=== PATIENT | male | born 1965 | race Caucasian/White ===

== ENCOUNTER 2022-03-23 11:11 | Inpatient (IN) | payer OTHER ==
[2022-03-23 11:29] VITALS: BMI 43.7
[2022-03-23 14:14] LABS: BASO % 0.7 % (0-2.0); HEMATOCRIT 41.3 % (35.4-49); HEMOGLOBIN 13.1 GM/dL (11.7-16.9); LYMPH % 12.7 % (8-40); MCHC 31.7 g/dl (32.0-35.9); MEAN CELL VOLUME 88.2 fl (80-96); MEAN PLT VOLUME 9.8 fl (7.5-11.1); MONO % 8.2 % (3.8-10.2); NEUT % 77.4 % (42.8-82.8); PLATELET COUNT 149 10^3/uL (134-434); RBC 4.68 M/mm3 (4.00-5.60); RDW 15.8 % (11.9-15.9); WHITE BLOOD COUNT 7.2 K/mm3 (4.0-10.0)
[2022-03-23 15:05] LABS: CHLORIDE 104 mmol/L (98-107); SODIUM 142 mmol/L (136-145)
[2022-03-23 15:08] LABS: ALBUMIN 3.5 g/dl (3.4-5.0); ANION GAP 13 MMOL/L (8-16); BLOOD UREA NITROGEN 26.8 mg/dL (7-18); CO2 25 mmol/L (21-32); GLUCOSE,RANDOM 212 mg/dL (74-106); MAGNESIUM 2.4 mg/dL (1.8-2.4)
[2022-03-23 15:11] LABS: CREATININE 1.3 mg/dL (0.55-1.3); PHOSPHOROUS 3.6 mg/dL (2.5-4.9); SGOT/AST 20 U/L (15-37); SGPT/ALT 35 U/L (13-61)
[2022-03-23 15:12] LABS: CALCIUM 9.1 mg/dL (8.5-10.1)
[2022-03-23 15:13] LABS: BILIRUBIN,TOTAL 1.8 mg/dL (0.2-1); TOT PROT 7.4 g/dl (6.4-8.2)
[2022-03-23 15:14] LABS: ALK PHOS 78 U/L (45-117)
[2022-03-23 15:16] LABS: N-TERMINAL BNP 1400.1 pg/ml (5-125)
[2022-03-23] MEDS ORDERED: ATORVASTATIN CA 80 MG TABLET (FP) PO ONE (16:03)
[2022-03-23] MEDS ORDERED: ASPIRIN 81 MG CHEWABLE TABLETS PO ONE (16:03)
[2022-03-23] MEDS ORDERED: CLOPIDOGREL BISULFATE 300 MG TABLET PO ONE (16:04)
[2022-03-23] MEDS ORDERED: HEPARIN NA (PORCINE) 5,000 UNITS/ML 1ML VIAL IVPUSH ONE (16:04)
[2022-03-23] MEDS ORDERED: HEPARIN NA (PORCINE) 5,000 UNITS/ML 1ML VIAL IVPUSH PRN ×2 (16:04)
[2022-03-23] MEDS ORDERED: ALBUTEROL SO4 2.5/IPRATROPIUM 0.5 INH SOL 3 ML VIAL.NEB. NEB ONE (16:09)
[2022-03-23] MEDS ORDERED: ATORVASTATIN CA 80 MG TABLET (FP) ONE (16:09)
[2022-03-23] MEDS ORDERED: CLOPIDOGREL BISULFATE 300 MG TABLET ONE (16:09)
[2022-03-23] MEDS ORDERED: ASPIRIN 81 MG CHEWABLE TABLETS ONE (16:10)
[2022-03-23] MEDS ORDERED: HEPARIN SOD,PORK IN 0.45% NACL 25,000 UNITS/500 ML INFUS.BAG IVPB SCH (16:15)
[2022-03-23] MEDS: ALBUTEROL SO4 2.5/IPRATROPIUM 0.5 INH SOL 3 ML VIAL.NEB. NEB SCH ×4 (16:22→17:53)
[2022-03-23 18:23] LABS: INR 1.28 (0.83-1.09); PROTHROMBIN TIME (PATIENT) 14.7 SEC (9.7-13.0)
[2022-03-23 18:26] LABS: ACTIVATED PTT 33.6 SECONDS (25.2-36.5)
[2022-03-23] MEDS ORDERED: HEPARIN INFUSION - 25,000 UNITS/500 ML INFUS.BAG IVPB ONE (18:40)
[2022-03-23] MEDS ORDERED: HEPARIN NA (PORCINE) 5,000 UNITS/ML 1ML VIAL ONE (18:45)
[2022-03-23] MEDS ORDERED: FUROSEMIDE 40 MG/4 ML INJECTABLE VIAL ONE (19:14)
[2022-03-23] MEDS: FUROSEMIDE 40 MG/4 ML INJECTABLE VIAL IVPUSH SCH (19:19)
[2022-03-23] MEDS ORDERED: ATORVASTATIN CA 80 MG TABLET (FP) PO SCH (22:00)
[2022-03-23] MEDS ORDERED: INSULIN (LEVEMIR) 100 UNITS/ML UNITS SQ SCH (22:00)
[2022-03-23] MEDS ORDERED: CARVEDILOL 25 MG TABLET (FP) ONE (22:40)
[2022-03-23] MEDS: CARVEDILOL 25 MG TABLET (FP) PO SCH (22:44)
[2022-03-23] MEDS: INSULIN SLIDING SCALE (NOVOLOG) 1 VIAL SQ SCH (22:48)
[2022-03-24 01:36] VITALS: PULSE 60
[2022-03-24] MEDS ORDERED: FUROSEMIDE 40 MG/4 ML INJECTABLE VIAL ONE ×2 (06:16→13:47)
[2022-03-24] MEDS: FUROSEMIDE 40 MG/4 ML INJECTABLE VIAL IVPUSH SCH ×2 (06:23→13:47)
[2022-03-24 08:02] LABS: BASO % 0.7 % (0-2.0); EOS % 1.9 % (0-4.5); HEMATOCRIT 41.9 % (35.4-49); HEMOGLOBIN 13.7 GM/dL (11.7-16.9); LYMPH % 17.8 % (8-40); MCH 28.8 pg (25.7-33.7); MCHC 32.6 g/dl (32.0-35.9); MEAN CELL VOLUME 88.2 fl (80-96); MEAN PLT VOLUME 9.9 fl (7.5-11.1); MONO % 10.8 % (3.8-10.2); NEUT % 68.8 % (42.8-82.8); PLATELET COUNT 152 10^3/uL (134-434); RBC 4.75 M/mm3 (4.00-5.60); RDW 16.2 % (11.9-15.9); WHITE BLOOD COUNT 5.5 K/mm3 (4.0-10.0)
[2022-03-24 08:10] LABS: CHLORIDE 104 mmol/L (98-107); SODIUM 140 mmol/L (136-145)
[2022-03-24 08:12] LABS: CALCIUM 9.5 mg/dL (8.5-10.1)
[2022-03-24 08:13] LABS: ALBUMIN 3.5 g/dl (3.4-5.0); ANION GAP 11 MMOL/L (8-16); BLOOD UREA NITROGEN 30.7 mg/dL (7-18); CO2 26 mmol/L (21-32); MAGNESIUM 2.3 mg/dL (1.8-2.4)
[2022-03-24 08:14] LABS: GLUCOSE,RANDOM 223 mg/dL (74-106)
[2022-03-24 08:16] LABS: CHOLESTEROL 162 mg/dL (50-200); CREATININE 1.4 mg/dL (0.55-1.3); SGOT/AST 15 U/L (15-37); SGPT/ALT 29 U/L (13-61)
[2022-03-24 08:17] LABS: BILIRUBIN,TOTAL 2.2 mg/dL (0.2-1); LDL CHOLESTEROL (ONLY SJRH) 101 mg/dL (5-100); TRIGLYCERIDES 171 mg/dL (0-150)
[2022-03-24 08:18] LABS: ALK PHOS 79 U/L (45-117); HDL CHOLESTEROL 47 mg/dL (40-60); TOT PROT 7.7 g/dl (6.4-8.2)
[2022-03-24] MEDS ORDERED: PANTOPRAZOLE 40 MG TABLET PO SCH (10:00)
[2022-03-24] MEDS ORDERED: ISOSORBIDE MONONITRATE 30 MG TAB.SR.24H (FP) PO SCH (10:00)
[2022-03-24] MEDS ORDERED: CARVEDILOL 25 MG TABLET (FP) ONE (10:01)
[2022-03-24] MEDS ORDERED: ISOSORBIDE MONONITRATE 30 MG TAB.SR.24H (FP) PO ONE (10:01)
[2022-03-24] MEDS ORDERED: PANTOPRAZOLE 40 MG TABLET PO ONE (10:01)
[2022-03-24] MEDS: INSULIN SLIDING SCALE (NOVOLOG) 1 VIAL SQ SCH ×2 (10:07→13:46)
[2022-03-24] MEDS: CARVEDILOL 25 MG TABLET (FP) PO SCH (10:08)
[2022-03-24] MEDS ORDERED: CLOPIDOGREL BISULFATE 75 MG TABLET (FP) PO SCH (10:30)
[2022-03-24] MEDS ORDERED: HEPARIN NA (PORCINE) 5,000 UNITS/ML 1ML VIAL ONE (13:42)
[2022-03-24] MEDS ORDERED: CLOPIDOGREL BISULFATE 75 MG TABLET (FP) ONE (13:42)
[2022-03-24 14:54] VITALS: BP 150/73; RESP 18; TEMP 98
== END 2022-03-24 18:31 | disposition short-term general hospital (02) | DRG 190 ==
LOC: JER 11:11 → JERBED 16:19
PROVIDERS: ADMIT Internal Medicine; ATTEND Internal Medicine
DX: I21.4 Non-ST elevation (NSTEMI) myocardial infarction (principal); I25.10 Atherosclerotic heart disease of native coronary artery without angina pectoris; I10 Essential (primary) hypertension; E11.9 Type 2 diabetes mellitus without complications; E78.00 Pure hypercholesterolemia, unspecified; I48.91 Unspecified atrial fibrillation; G47.33 Obstructive sleep apnea (adult) (pediatric); Z95.1 Presence of aortocoronary bypass graft; Z95.0 Presence of cardiac pacemaker
CPT/HCPCS: 0241U-QW; 36415; 71046-TC-FY; 80053; 80061; 82550; 82962; 83036; 83735; 83880; 84100; 84443; 84484; 85025; 85610; 85730; 93005; 93010; 94660; 99285-25; J1644

== ENCOUNTER 2023-08-31 12:38 | Inpatient (IN) | payer OTHER ==
[2023-08-31 12:44] VITALS: BMI 43.6
[2023-08-31 14:49] LABS: BASO % 0.4 % (0-2.0); EOS % 1.2 % (0-4.5); HEMATOCRIT 41.7 % (35.4-49); HEMOGLOBIN 13.6 GM/dL (11.7-16.9); LYMPH % 13.3 % (8-40); MCH 27.7 pg (25.7-33.7); MCHC 32.5 g/dl (32.0-35.9); MEAN CELL VOLUME 85.1 fl (80-96); NEUT % 77.1 % (42.8-82.8); PLATELET COUNT 197 10^3/uL (134-434); WHITE BLOOD COUNT 7.8 K/mm3 (4.0-10.0)
[2023-08-31] MEDS ORDERED: ceFAZolin SODIUM 1 GM VIAL ONE (14:55)
[2023-08-31 14:58] LABS: INR 1.28 (0.83-1.09); PROTHROMBIN TIME (PATIENT) 14.4 SEC (9.7-13.0)
[2023-08-31 15:01] LABS: ACTIVATED PTT 37.2 SECONDS (25.2-36.5)
[2023-08-31 15:07] LABS: POTASSIUM 4.1 mmol/L (3.5-5.1)
[2023-08-31 15:09] LABS: CALCIUM 8.9 mg/dL (8.5-10.1)
[2023-08-31 15:10] LABS: ALBUMIN 3.2 g/dl (3.4-5.0); BLOOD UREA NITROGEN 40.5 mg/dL (7-18)
[2023-08-31] MEDS: CEFAZOLIN 1 GM in DEXTROSE 5%-WATER - 50 ML IVPB ONE (15:12)
[2023-08-31 15:14] LABS: BILIRUBIN,TOTAL 1.1 mg/dL (0.2-1); TOT PROT 7.1 g/dl (6.4-8.2)
[2023-08-31 15:15] LABS: CREATININE 1.6 mg/dL (0.55-1.3)
[2023-08-31] MEDS: VANCOMYCIN PREMIX 1.75 GM 1,750 MG/350 ML PIGGYBACK IVPB ONE (16:09)
[2023-08-31] MEDS ORDERED: CEFAZOLIN 1 GM in DEXTROSE 5%-WATER - 50 ML IVPB SCH (18:00)
[2023-08-31] MEDS: APIXABAN 5 MG TABLET PO SCH (21:30)
[2023-08-31] MEDS: CARVEDILOL 25 MG TABLET (FP) PO SCH (21:31)
[2023-08-31] MEDS: ATORVASTATIN CA 80 MG TABLET (FP) PO SCH (21:31)
[2023-08-31] MEDS: INSULIN (LEVEMIR) 100 UNITS/ML UNITS SQ SCH (21:32)
[2023-08-31] MEDS: INSULIN ASPART SLIDING SCALE (NOVOLOG) 1 VIAL SQ SCH (21:33)
[2023-08-31] MEDS ORDERED: ISOSORBIDE MONONITRATE 30 MG TAB.SR.24H (FP) PO SCH (22:00)
[2023-09-01] MEDS: CEFEPIME 1 GM in SODIUM CHLORIDE 100 ML IVPB SCH (04:10)
[2023-09-01] MEDS: VANCOMYCIN/WATER 2 GRAMS 2,000 MG/400 ML PIGGYBACK IVPB SCH ×2 (06:37→11:29)
[2023-09-01] MEDS: INSULIN (NOVOLOG) ASPART 100 UNITS/ML 10ML VIAL SQ SCH (06:55)
[2023-09-01 08:20] LABS: BASO % 0.4 % (0-2.0); EOS % 1.9 % (0-4.5); HEMATOCRIT 41.2 % (35.4-49); HEMOGLOBIN 13.3 GM/dL (11.7-16.9); LYMPH % 17.4 % (8-40); MCH 27.7 pg (25.7-33.7); MCHC 32.1 g/dl (32.0-35.9); MEAN CELL VOLUME 86.1 fl (80-96); MEAN PLT VOLUME 9.4 fl (7.5-11.1); NEUT % 70.3 % (42.8-82.8); PLATELET COUNT 200 10^3/uL (134-434); RBC 4.79 M/mm3 (4.00-5.60); RDW 16.8 % (11.9-15.9); WHITE BLOOD COUNT 6.9 K/mm3 (4.0-10.0)
[2023-09-01 08:27] LABS: POTASSIUM 4.3 mmol/L (3.5-5.1)
[2023-09-01 08:34] LABS: ALBUMIN 3.1 g/dl (3.4-5.0); BLOOD UREA NITROGEN 38.6 mg/dL (7-18); CALCIUM 8.8 mg/dL (8.5-10.1); MAGNESIUM 2.3 mg/dL (1.8-2.4)
[2023-09-01 08:37] LABS: PHOSPHOROUS 4.1 mg/dL (2.5-4.9)
[2023-09-01 08:38] LABS: CREATININE 1.4 mg/dL (0.55-1.3)
[2023-09-01 08:39] LABS: BILIRUBIN,TOTAL 1.1 mg/dL (0.2-1); TOT PROT 7.1 g/dl (6.4-8.2)
[2023-09-01] MEDS: ISOSORBIDE MONONITRATE 30 MG TAB.SR.24H (FP) PO SCH ×2 (09:50→17:36)
[2023-09-01] MEDS: SODIUM CHLORIDE 1,000 ML IV SCH (10:18)
[2023-09-01] MEDS: INSULIN (LEVEMIR) 100 UNITS/ML UNITS SQ SCH (10:19)
[2023-09-01] MEDS: CEFEPIME HCL 1 GM VIAL (RESTRICTED TO ID) IVPB SCH (11:29)
[2023-09-01] MEDS: CEFTRIAXONE 2 GM in DEXTROSE 5%-WATER 100 ML IVPB SCH (13:55)
[2023-09-01] MEDS: FLUTICASONE PROP 0.05% 16 GM NASAL SPRAY NS SCH (19:09)
[2023-09-01] MEDS: SODIUM CHLORIDE NASAL SPRAY 44 ML BOTTLE NS PRN (19:09)
[2023-09-02 09:56] LABS: BASO % 0.4 % (0-2.0); EOS % 2.2 % (0-4.5); HEMATOCRIT 40.1 % (35.4-49); HEMOGLOBIN 12.8 GM/dL (11.7-16.9); LYMPH % 22.5 % (8-40); MCH 27.5 pg (25.7-33.7); MCHC 31.8 g/dl (32.0-35.9); MEAN CELL VOLUME 86.4 fl (80-96); MEAN PLT VOLUME 9.4 fl (7.5-11.1); NEUT % 64.9 % (42.8-82.8); PLATELET COUNT 209 10^3/uL (134-434); RBC 4.64 M/mm3 (4.00-5.60); WHITE BLOOD COUNT 6.2 K/mm3 (4.0-10.0)
[2023-09-02 10:16] LABS: POTASSIUM 4.8 mmol/L (3.5-5.1)
[2023-09-02 10:33] LABS: ALBUMIN 3.1 g/dl (3.4-5.0); BLOOD UREA NITROGEN 31.3 mg/dL (7-18); CALCIUM 8.8 mg/dL (8.5-10.1); MAGNESIUM 2.3 mg/dL (1.8-2.4)
[2023-09-02 10:36] LABS: CREATININE 1.1 mg/dL (0.55-1.3)
[2023-09-02 10:37] LABS: BILIRUBIN,TOTAL 1.3 mg/dL (0.2-1)
[2023-09-02 10:38] LABS: TOT PROT 7.1 g/dl (6.4-8.2)
[2023-09-02] MEDS: TORSEMIDE 20 MG TABLET (FP) PO SCH (12:16)
[2023-09-02] MEDS: CALCIUM ACETATE/AL SULFATE TOP 1.9 GM/PACKET PACKET TP SCH (17:13)
[2023-09-03 09:18] LABS: BASO % 0.6 % (0-2.0); EOS % 2.3 % (0-4.5); HEMATOCRIT 39.1 % (35.4-49); HEMOGLOBIN 12.5 GM/dL (11.7-16.9); LYMPH % 22.8 % (8-40); MCH 27.5 pg (25.7-33.7); MCHC 31.9 g/dl (32.0-35.9); MEAN CELL VOLUME 86.4 fl (80-96); MEAN PLT VOLUME 9.3 fl (7.5-11.1); MONO % 11.2 % (3.8-10.2); NEUT % 63.1 % (42.8-82.8); PLATELET COUNT 206 10^3/uL (134-434); RBC 4.53 M/mm3 (4.00-5.60); RDW 16.8 % (11.9-15.9); WHITE BLOOD COUNT 5.6 K/mm3 (4.0-10.0)
[2023-09-03 09:40] LABS: POTASSIUM 5.1 mmol/L (3.5-5.1)
[2023-09-03 09:45] LABS: BLOOD UREA NITROGEN 31.2 mg/dL (7-18); CALCIUM 8.9 mg/dL (8.5-10.1); MAGNESIUM 2.3 mg/dL (1.8-2.4)
[2023-09-03 09:49] LABS: CREATININE 1.1 mg/dL (0.55-1.3)
[2023-09-03 09:50] LABS: BILIRUBIN,TOTAL 0.8 mg/dL (0.2-1); TOT PROT 6.7 g/dl (6.4-8.2)
[2023-09-04 09:23] LABS: POTASSIUM 4.5 mmol/L (3.5-5.1)
[2023-09-04 09:26] LABS: BASO % 0.6 % (0-2.0); BLOOD UREA NITROGEN 30.6 mg/dL (7-18); CALCIUM 8.9 mg/dL (8.5-10.1); EOS % 2.2 % (0-4.5); HEMATOCRIT 39.7 % (35.4-49); HEMOGLOBIN 12.9 GM/dL (11.7-16.9); LYMPH % 22.5 % (8-40); MCH 27.8 pg (25.7-33.7); MCHC 32.5 g/dl (32.0-35.9); MEAN CELL VOLUME 85.5 fl (80-96); MEAN PLT VOLUME 9.3 fl (7.5-11.1); MONO % 9.9 % (3.8-10.2); NEUT % 64.8 % (42.8-82.8); PLATELET COUNT 207 10^3/uL (134-434); RBC 4.64 M/mm3 (4.00-5.60); RDW 16.8 % (11.9-15.9); WHITE BLOOD COUNT 5.4 K/mm3 (4.0-10.0)
[2023-09-04 09:27] LABS: ALBUMIN 2.9 g/dl (3.4-5.0); MAGNESIUM 2.1 mg/dL (1.8-2.4)
[2023-09-04 09:30] LABS: BILIRUBIN,TOTAL 0.7 mg/dL (0.2-1); CREATININE 1.1 mg/dL (0.55-1.3)
[2023-09-04 09:31] LABS: TOT PROT 6.8 g/dl (6.4-8.2)
[2023-09-05] MEDS: LISINOPRIL 20 MG TABLET PO SCH (17:22)
[2023-09-05] MEDS: LOSARTAN 50MG/HCTZ 12.5MG 1 TAB PO SCH (20:23)
[2023-09-05 21:22] VITALS: RESP 20
[2023-09-06 06:31] VITALS: BP 143/79; TEMP 98.6
[2023-09-06 07:18] VITALS: PULSE 60
[2023-09-06] MEDS: AMOX TR/POT CLAV 875MG/125MG TABLETS (FP) PO SCH (09:35)
[2023-09-06] MEDS: LOSARTAN POTASSIUM 25 MG TABLET PO ONE (09:41)
[2023-09-06 09:47] LABS: POTASSIUM 4.2 mmol/L (3.5-5.1)
[2023-09-06 10:06] LABS: BLOOD UREA NITROGEN 27.4 mg/dL (7-18); CALCIUM 9.1 mg/dL (8.5-10.1)
== END 2023-09-06 11:36 | disposition home or self-care (01) | DRG 383 ==
LOC: JER 12:38 → JERBED 16:54 → J8W 20:43
PROVIDERS: ADMIT Internal Medicine; ATTEND Nurse Practitioner Acute Care
DX: L03.115 Cellulitis of right lower limb (principal); E11.40 Type 2 diabetes mellitus with diabetic neuropathy, unspecified; N17.9 Acute kidney failure, unspecified; E11.51 Type 2 diabetes mellitus with diabetic peripheral angiopathy without gangrene; E11.621 Type 2 diabetes mellitus with foot ulcer; E66.01 Morbid (severe) obesity due to excess calories; I48.91 Unspecified atrial fibrillation; L97.919 Non-pressure chronic ulcer of unspecified part of right lower leg with unspecified severity; Z68.41 Body mass index [BMI] 40.0-44.9, adult; E78.5 Hyperlipidemia, unspecified; I10 Essential (primary) hypertension; I25.10 Atherosclerotic heart disease of native coronary artery without angina pectoris; Z95.1 Presence of aortocoronary bypass graft; Z95.5 Presence of coronary angioplasty implant and graft
CPT/HCPCS: 36415; 73590-TC-RT-FY; 80048; 80053; 82043; 82570; 82962; 83036; 83605; 83735; 84100; 84484; 85025; 85610; 85651; 85730; 86140; 86850; 86900; 86901; 87040; 93005; 93010; 93925-TC; 94660; 97116-GP; 97161-GP; 99285-25; J3370

== ENCOUNTER 2024-04-06 21:02 | Observation (INO) | payer OTHER ==
[2024-04-06 21:06] VITALS: BMI 43.0
[2024-04-06] MEDS ORDERED: ALBUTEROL SO4 2.5/IPRATROPIUM 0.5 INH SOL 3 ML VIAL.NEB. NEB ONE ×2 (21:13→21:33)
[2024-04-06] MEDS ORDERED: predniSONE 20 MG TABLET (UD) ONE (21:33)
[2024-04-06] MEDS: ALBUTEROL SO4 2.5/IPRATROPIUM 0.5 INH SOL 3 ML VIAL.NEB. NEB SCH (21:38)
[2024-04-06] MEDS: predniSONE 20 MG TABLET (UD) PO ONE (21:38)
[2024-04-06 23:58] LABS: BASO % 0.6 % (0-2.0); EOS % 0.6 % (0-4.5); HEMATOCRIT 42.1 % (35.4-49); HEMOGLOBIN 13.9 GM/dL (11.7-16.9); MCH 28.5 pg (25.7-33.7); MEAN CELL VOLUME 86.5 fl (80-96); MEAN PLT VOLUME 9.6 fl (7.5-11.1); MONO % 12.3 % (3.8-10.2); NEUT % 66.5 % (42.8-82.8); PLATELET COUNT 159 10^3/uL (134-434); RBC 4.87 M/mm3 (4.00-5.60); RDW 16.2 % (11.9-15.9); WHITE BLOOD COUNT 5.8 K/mm3 (4.0-10.0)
[2024-04-07 00:29] LABS: POTASSIUM 5.2 mmol/L (3.5-5.1)
[2024-04-07 00:31] LABS: BLOOD UREA NITROGEN 40.7 mg/dL (7-18); CALCIUM 9.2 mg/dL (8.5-10.1)
[2024-04-07 00:32] LABS: ALBUMIN 3.4 g/dl (3.4-5.0)
[2024-04-07 00:34] LABS: CREATININE 1.4 mg/dL (0.55-1.3)
[2024-04-07 00:36] LABS: BILIRUBIN,TOTAL 0.6 mg/dL (0.2-1); TOT PROT 6.8 g/dl (6.4-8.2)
[2024-04-07] MEDS: LACTATED RINGERS SOLUTION 1000 ML INFUS.BAG IV ONE (00:56)
[2024-04-07 05:03] VITALS: PULSE 60
[2024-04-07] MEDS ORDERED: HEPARIN NA (PORCINE) 5,000 UNITS/ML 1ML VIAL SQ SCH (06:00)
[2024-04-07 06:45] LABS: HEMATOCRIT 44.7 % (35.4-49); HEMOGLOBIN 14.3 GM/dL (11.7-16.9); MEAN CELL VOLUME 87.3 fl (80-96); MEAN PLT VOLUME 9.2 fl (7.5-11.1); PLATELET COUNT 126 10^3/uL (134-434); RBC 5.12 M/mm3 (4.00-5.60); RDW 15.8 % (11.9-15.9); WHITE BLOOD COUNT 5.7 K/mm3 (4.0-10.0)
[2024-04-07] MEDS: ISOSORBIDE MONONITRATE 30 MG TAB.SR.24H (FP) PO SCH (06:47)
[2024-04-07] MEDS ORDERED: ISOSORBIDE MONONITRATE 30 MG TAB.SR.24H (FP) PO ONE ×2 (07:03→15:36)
[2024-04-07] MEDS ORDERED: ALBUTEROL SO4 2.5/IPRATROPIUM 0.5 INH SOL 3 ML VIAL.NEB. NEB ONE ×3 (07:05→13:03)
[2024-04-07 07:09] LABS: ALBUMIN 3.5 g/dl (3.4-5.0); CALCIUM 9.2 mg/dL (8.5-10.1)
[2024-04-07 07:10] LABS: BLOOD UREA NITROGEN 36.6 mg/dL (7-18)
[2024-04-07 07:13] LABS: CREATININE 1.3 mg/dL (0.55-1.3)
[2024-04-07 07:14] LABS: BILIRUBIN,TOTAL 0.7 mg/dL (0.2-1); TOT PROT 7.4 g/dl (6.4-8.2)
[2024-04-07] MEDS: ALBUTEROL SO4 2.5/IPRATROPIUM 0.5 INH SOL 3 ML VIAL.NEB. NEB SCH (07:18)
[2024-04-07] MEDS: INSULIN ASPART SLIDING SCALE (NOVOLOG) 1 VIAL SQ SCH (07:31)
[2024-04-07] MEDS ORDERED: CARVEDILOL 25 MG TABLET (FP) ONE (09:36)
[2024-04-07] MEDS ORDERED: APIXABAN 5 MG TABLET ONE (09:36)
[2024-04-07] MEDS ORDERED: methylPREDNISolone NA SUCC 40 MG/1 ML VIAL ONE ×2 (09:36→17:33)
[2024-04-07] MEDS: APIXABAN 5 MG TABLET PO SCH (09:42)
[2024-04-07] MEDS: CARVEDILOL 25 MG TABLET (FP) PO SCH (09:42)
[2024-04-07] MEDS: methylPREDNISolone NA SUCC 40 MG/1 ML VIAL IVPUSH SCH (09:48)
[2024-04-07] MEDS ORDERED: TORSEMIDE 20 MG TABLET (FP) PO SCH (10:00)
[2024-04-07] MEDS ORDERED: INSULIN ASPART SLIDING SCALE (NOVOLOG) 1 VIAL SQ ONE (11:58)
[2024-04-07] MEDS: ALBUTEROL SO4 2.5/IPRATROPIUM 0.5 INH SOL 3 ML VIAL.NEB. NEB PRN (12:31)
[2024-04-07] MEDS ORDERED: LOSARTAN POTASSIUM 50 MG TABLET ONE (13:03)
[2024-04-07] MEDS ORDERED: ACETAMINOPHEN INJECTION 100 ML ONE (13:03)
[2024-04-07] MEDS: LOSARTAN POTASSIUM 50 MG TABLET PO SCH (13:09)
[2024-04-07] MEDS: ACETAMINOPHEN 1000 MG/100 ML BAG IVPB PRN (13:09)
[2024-04-07 15:47] VITALS: BP 172/81; RESP 18; TEMP 98.3
[2024-04-07] MEDS ORDERED: ATORVASTATIN CA 80 MG TABLET (FP) PO SCH (22:00)
== END 2024-04-07 18:41 | disposition home or self-care (01) ==
LOC: JER 21:02 → JERBED 23:23
PROVIDERS: ADMIT Internal Medicine
PROC: 3E033NZ Introduction of Analgesics, Hypnotics, Sedatives into Peripheral Vein, Percutaneous Approach (ICD-10-PCS; principal; 2024-04-06)
PROC: 3E0F7GC Introduction of Other Therapeutic Substance into Respiratory Tract, Via Natural or Artificial Opening (ICD-10-PCS; 2024-04-06)
PROC: 3E013VG Introduction of Insulin into Subcutaneous Tissue, Percutaneous Approach (ICD-10-PCS; 2024-04-06)
PROC: 3E033GC Introduction of Other Therapeutic Substance into Peripheral Vein, Percutaneous Approach (ICD-10-PCS; 2024-04-06)
DX: J45.901 Unspecified asthma with (acute) exacerbation (principal); R09.02 Hypoxemia; J09.X2 Influenza due to identified novel influenza A virus with other respiratory manifestations; E11.51 Type 2 diabetes mellitus with diabetic peripheral angiopathy without gangrene; E78.5 Hyperlipidemia, unspecified; Z95.0 Presence of cardiac pacemaker; M14.679 Charcot's joint, unspecified ankle and foot; G47.33 Obstructive sleep apnea (adult) (pediatric); I25.10 Atherosclerotic heart disease of native coronary artery without angina pectoris; I48.91 Unspecified atrial fibrillation; E11.42 Type 2 diabetes mellitus with diabetic polyneuropathy
CPT/HCPCS: 36415; 71046-TC-FY; 80053; 82962; 83036; 85025; 85027; 93005; 93010; 94640; 94660; 96372; 96374; 96375; 99285-25; G0378; J0131